=== PATIENT | female | born 1990 | race Caucasian/White ===

== ENCOUNTER → 2024-10-27 | Outpatient (CLI) | payer OTHER ==
[~2024-10-27] MED LIST: PROHANCE 279.3MG/ML 15ML VIAL ONE
== END ==
LOC: M PLAIMG 07:49
PROVIDERS: ATTEND Neurological Surgery
DX: C71.6 Malignant neoplasm of cerebellum (principal); Z98.890 Other specified postprocedural states
CPT/HCPCS: 70553; A9576